=== PATIENT | male | born 1975 | race Caucasian/White ===

== ENCOUNTER 2022-04-25 11:47 | Emergency (ER) | payer BC, SELFPAY ==
[2022-04-25 11:57] VITALS: BP 148/103; PULSE 98; RESP 20; TEMP 36.9; O2SAT 97
--- NOTE | 2022-04-25 12:20 | ED.URI ---
HPI - URI/Sore Throat General Chief Complaint: Upper Respiratory Infection Stated Complaint: Chest Congestion Time Seen by Provider: 04/25/22 12:20 Source: patient and RN notes reviewed Mode of arrival: ambulatory Limitations: no limitations History of Present Illness HPI Narrative: 46-year-old male presented for complaint of sinus congestion and cough intermittently for almost 1 month. He denies shortness of breath or wheezing. He states I could run a marathon. Denies sore throat, nausea, vomiting, diarrhea, fevers or chills. He has not taken anything for symptoms. Patient smokes 1PPD. MD elicited complaint: cough Review of Systems Review of Systems: ROS per HPI Exam Narrative: GENERAL: well-appearing EYES: PERRLA, conjunctivae clear ENT: Mucous membranes moist. TMs pearly oneill with dull light reflex bilaterally; no tragal tenderness. Oropharynx erythematous without lesions or exudate CHEST: Clear to auscultation, breath sounds equal. No wheezing, rhonchi, rales, or stridor. HEART: Regular rate and rhythm. No murmur heard. SKIN: Warm, dry, no rash. NEURO: Alert and oriented x3. PSYCH: Normal mood and affect Course Course Emergency Course: Patient is aware of diagnosis, understands and agrees to treatment plan. Anticipatory guidance given. Patient agrees to follow-up as directed and is aware of reasons to seek care at the emergency department. Portions of this record may have been created with voice recognition software Level of Care: Express Care Visit Vital Signs Vital signs: Vital Signs Temperature 98.4 F 04/25/22 11:57 Pulse Rate 98 04/25/22 11:57 Respiratory Rate 20 04/25/22 11:57 Blood Pressure 148/103 H 04/25/22 11:57 Pulse Oximetry 97 04/25/22 11:57 Oxygen Delivery Room Air 04/25/22 11:57 Temperature 98.4 F 04/25/22 11:57 Pulse Rate 98 04/25/22 11:57 Respiratory Rate 20 04/25/22 11:57 Blood Pressure 148/103 H 04/25/22 11:57 Pulse Oximetry 97 04/25/22 11:57 Oxygen Delivery Room Air 04/25/22 11:57 reviewed MDM - URI/Sore Throat MDM Narrative Medical decision making narrative: Advised supportive measures and signs/symptoms to go to the ER. Pt is appropriate for outpt treatment and f/u. Differential Diagnosis Differential diagnosis: Likely upper respiratory infection, sinusitis and viral infection Discharge Plan Discharge Clinical Impression: Upper respiratory infection Patient Disposition: Home, Self-Care Condition: Stable Instructions: Antibiotic Form, Rhinosinusitis (ED) Additional Instructions: Your blood pressure reading was elevated (above 120/80) please follow-up with your primary care provider for further evaluation and management. Recommend Flonase spray and Zyrtec (or Claritin/Negrita) over the counter Cough syrup may cause drowsiness; avoid driving or take it at night time. Tylenol 1000mg every 8 hours as needed for pain Symptomatic treatment includes: rest, fluids, and increase humidity of the air at home. Recommend smoking cessation Follow up with your primary care provider in 1 week. Go to the ER for worsening symptoms or concerns. Prescriptions: New fluticasone propionate [Flonase Allergy Relief] 50 mcg/actuation spray,suspension 2 spray intranasal DAILY PRN (Reason: allergy symptoms) Qty: 16 0RF Rx Instructions: administer into each nostril doxycycline hyclate 100 mg tablet 100 mg PO BID 7 Days Qty: 14 0RF Follow-up/Referrals: Jensen,MD Rosangela [Primary Care Provider] - Time of Disposition: 12:28
== END 2022-04-25 12:45 | disposition home or self-care (01) ==
PROVIDERS: Emergency Provider Nurse Practitioner Family; PCP Internal Medicine
DX: J06.9 Acute upper respiratory infection, unspecified (principal); F17.200 Nicotine dependence, unspecified, uncomplicated; Z86.2 Personal history of diseases of the blood and blood-forming organs and certain disorders involving the immune mechanism
CPT/HCPCS: 99213; G0463